=== PATIENT | female | born 1955 | race Caucasian/White ===

== ENCOUNTER 2023-10-05 11:46 | Outpatient (NON) | payer MEDICARE, SELFPAY ==
[2023-10-05 12:05] LABS: Basophils Absolute Auto 0.03 K/mm3 (0.00-0.10); Basophils Percent Auto 0.6 % (0.0-1.0); Eosinophils Absolute Auto 0.14 K/mm3 (0.02-0.50); Eosinophils Percent Auto 2.8 % (1.0-6.0); Hematocrit 35.4 % (35.0-42.0); Hemoglobin 11.2 g/dL (11.7-13.8); Immature Granulocyte Absolute 0.02 K/mm3 (0.00-0.00); Immature Granulocyte Percent A 0.4 % (0.0-0.0); Lymphocytes Absolute Auto 1.18 K/mm3 (1.10-4.50); Lymphocytes Percent Auto 23.9 % (18.0-42.0); Mean Corpuscular HGB Conc 31.6 g/dL (32-36); Mean Corpuscular Volume 85.3 fL (78.0-102.0); Mean Platelet Volume 12.4 fl (9.2-11.8); Monocytes Absolute Auto 0.56 K/mm3 (0.10-0.90); Monocytes Percent Auto 11.3 % (2.0-11.0); Neutrophils Absolute Auto 3.01 K/mm3 (1.70-7.20); Platelet Count Result 152 K/mm3 (150-420); Red Blood Count 4.15 M/mm3 (4.20-5.40); Red Cell Distribution Width 14.6 % (11.6-14.4); White Blood Count 4.9 K/mm3 (4.8-10.8)
[2023-10-05 12:48] LABS: Alanine Aminotransferase 23 U/L (14-59); Albumin Level 4.3 g/dL (3.4-5.0); Alkaline Phosphatase 91 U/L (46-116); Anion Gap 4 mmol/L (4-12); Aspartate Amino Transferase 25 U/L (15-37); Bilirubin,Total 0.7 mg/dL (0.00-1.00); Blood Urea Nitrogen 36 mg/dL (7-18); Calcium 9.7 mg/dL (8.5-10.1); Carbon Dioxide 36 mmol/L (21-32); Chloride 102 mmol/L (98-108); Cholesterol 258 mg/dL (0-200); Estimated Glomerular Filt Rate 32; Glucose 86 mg/dL (70-99); HDL Direct 113 mg/dL (40-60); Iron 44 ug/dL (50-170); LDL Cholesterol Calculated 131 mg/dL (<130); Magnesium 2.3 mg/dL (1.8-2.4); Osmolality Calculated 301 mOsm/kg (285-295); Percent Iron Saturation 22 % (12-57); Potassium 4.7 mmol/L (3.5-5.1); Sodium 142 mmol/L (136-145); Triglycerides 71 mg/dL (0-150); Vitamin B12 365 pg/mL (193-986)
[2023-10-05 13:05] LABS: Thyroid Stimulating Hormone Reflex 1.72 u/IU/mL (0.36-3.74)
[2023-10-05 13:06] LABS: Erythrocyte Sedimentation Rate 30 mm/hr (0-20)
== END 2023-10-05 11:47 | disposition home or self-care (01) ==
LOC: CHSLAB 11:55
DX: I13.0 Hypertensive heart and chronic kidney disease with heart failure and stage 1 through stage 4 chronic kidney disease, or unspecified chronic kidney disease (principal); I50.30 Unspecified diastolic (congestive) heart failure; D63.1 Anemia in chronic kidney disease; R53.83 Other fatigue; E03.9 Hypothyroidism, unspecified; E78.5 Hyperlipidemia, unspecified
CPT/HCPCS: 36415; 80053; 80061; 82607; 83540; 83550; 83735; 84443; 85025; 85652

== ENCOUNTER 2023-11-06 10:33 | Outpatient (NON) | payer MEDICARE, SELFPAY ==
[2023-11-06 10:55] LABS: Hematocrit 34.8 % (35.0-42.0); Hemoglobin 11.1 g/dL (11.7-13.8); Mean Corpuscular HGB Conc 31.9 g/dL (32-36); Mean Corpuscular Volume 84.7 fL (78.0-102.0); Mean Platelet Volume 12.9 fl (9.2-11.8); Platelet Count Result 153 K/mm3 (150-420); Red Blood Count 4.11 M/mm3 (4.20-5.40); Red Cell Distribution Width 14.3 % (11.6-14.4); White Blood Count 3.4 K/mm3 (4.8-10.8)
[2023-11-06 10:59] LABS: Creatinine Urine 66.82 mg/dL (40-278); Total Protein Urine Random 18.9 mg/dL (0.0-11.9); Ur Ttl Prot Creatinine Ratio 0.28 mg/mg (0-0.20)
[2023-11-06 11:00] LABS: Appearance Urine Sl Cloudy (Clear); Bilirubin Urine Negative (Negative); Blood Urine Trace-intact (Negative); Color Urine Light Yellow (Yellow); Glucose Urine UA Negative (Negative); Ketones Urine Negative (Negative); Leukocyte Esterase Ur 2+ (Negative); Nitrate Urine Negative (Negative); Protein Urine Negative (Negative); Urobilinogen Urine 0.2 mg/dL (0.2-1.0)
[2023-11-06 11:08] LABS: Add Urine Microscopic? YES; Bacteria Urine 2+ /hpf; RBC Urine 0-2 /hpf (0-2); Squamous Epithelial Cell Urine Moderate /hpf (Few)
[2023-11-06 11:13] LABS: Alanine Aminotransferase 28 U/L (14-59); Albumin Level 4.1 g/dL (3.4-5.0); Alkaline Phosphatase 100 U/L (46-116); Anion Gap 5 mmol/L (4-12); Aspartate Amino Transferase 27 U/L (15-37); Bilirubin,Total 0.7 mg/dL (0.00-1.00); Blood Urea Nitrogen 25 mg/dL (7-18); CRP 0.5 mg/dL (0.0-0.9); Carbon Dioxide 34 mmol/L (21-32); Chloride 101 mmol/L (98-108); Creatine Kinase 198 U/L (26-192); Estimated Glomerular Filt Rate 24; Glucose 80 mg/dL (70-99); Osmolality Calculated 293 mOsm/kg (285-295); Potassium 4.5 mmol/L (3.5-5.1); Sodium 140 mmol/L (136-145); Total Protein 7.4 g/dL (6.4-8.2)
[2023-11-06 11:16] LABS: Band Neutrophils Percent 0 % (0-6); Eosinophils Percent Manual 6 % (1-6); Lymphocytes Absolute Manual 1.12 K/mm3 (1.1-4.5); Lymphocytes Percent Manual 33 % (18-44); Monocytes Absolute Manual 0.34 K/mm3 (0.1-0.90); Monocytes Percent Manual 10 % (3-9); Neutrophils Absolute Manual 1.73 K/mm3 (1.7-7.2); Neutrophils Percent Manual 51 % (46-73); Platelet Estimate Adequate (Adequate); Total Cells Counted 100
[2023-11-06 12:05] LABS: Erythrocyte Sedimentation Rate 22 mm/hr (0-20)
[2023-11-08 17:04] LABS: Aldolase 4.8 U/L (< OR = 8.1)
[2023-11-08 17:38] LABS: Complement C3 76 mg/dL (83-193)
== END 2023-11-06 10:34 | disposition home or self-care (01) ==
LOC: CHSLAB 10:35
PROVIDERS: Visit Provider Internal Medicine Cardiovascular Disease
DX: M32.19 Other organ or system involvement in systemic lupus erythematosus (principal); I13.0 Hypertensive heart and chronic kidney disease with heart failure and stage 1 through stage 4 chronic kidney disease, or unspecified chronic kidney disease; I50.30 Unspecified diastolic (congestive) heart failure; E03.9 Hypothyroidism, unspecified; N39.0 Urinary tract infection, site not specified
CPT/HCPCS: 36415; 80053; 81001; 82085; 82550; 82570; 84156; 85025; 85652; 86140; 86160; 86225; 87077; 87086; 87088; 87186